=== PATIENT | female | born 1990 | race Caucasian/White ===

== ENCOUNTER 2017-05-07 23:33 | Emergency (ER) | payer OTHER ==
[2017-05-07 23:48] VITALS: RESP 16
[2017-05-08] MEDS ORDERED: NS 1,000 ML IV ONE (00:36)
--- NOTE | 2017-05-08 00:37 | EDPHY ---
H & P Stated Complaint: pt c/o severe smith starting this pm, n/v last pm/this am HPI/ROS: HPI CHIEF COMPLAINT: Nausea, vomiting, headache HISTORY OF PRESENT ILLNESS: This patient very pleasant 26-year-old female, she is otherwise healthy, she presents emergency room with a left-sided throbbing headache. She states last she fell in her bathroom with a head strike posterior aspect of her head against the bathtub. She immediately developed a headache and her headache has been rather persistent however yesterday she did state that her headache got better. However yesterday around 3:00 a.m. she woke up with vomiting she vomited twice yesterday and once today. Her headache return. She describes as throbbing pulsating left side. She denies any neck pain. Denies light sensitivity. Does admit that it hurts worse when she changes certain positions. She denies fever recent illness. No neck pain no neck stiffness. No meningeal signs. She decided come the emergency room as she had 3 episodes of vomiting and had head strike away almost a week ago she became concerned. She has no headache history. She denies drugs alcohol tobacco. Past Medical History: No significant medical history except for attention deficit hyperactivity disorder Past Surgical History: No significant surgical history Social History: Denies daily use drugs alcohol tobacco products. Did have 1 beer earlier this evening. Family History: Noncontributory ROS REVIEW OF SYSTEMS: A comprehensive 10 point review of systems is otherwise negative aside from elements mentioned in the history of present illness. Exam Constitutional appears well nontoxic triage nursing summary reviewed, vital signs reviewed, awake/alert. Eyes normal conjunctivae and sclera, EOMI, PERRLA. HENT normal inspection, atraumatic, moist mucus membranes, no epistaxis, neck supple/ no meningismus, no raccoon eyes. Respiratory clear to auscultation bilaterally, normal breath sounds, no respiratory distress, no wheezing. Cardiovascular rate normal, regular rhythm, no murmur, no edema, distal pulses normal. Gastrointestinal soft, non-tender, no rebound, no guarding, normal bowel sounds, no distension, no pulsatile mass. Genitourinary no CVA tenderness. Musculoskeletal no midline vertebral tenderness, full range of motion, no calf swelling, no tenderness of extremities, no meningismus, good pulses, neurovascularly intact. Skin pink, warm, & dry, no rash, skin atraumatic. Neurologic awake, alert and oriented x 3, AAOx3, moves all 4 extremities equally, motor intact, sensory intact, CN II-XII intact, normal cerebellar, normal vision, normal speech. Neck is supple. No meningeal signs. Nonfocal neurological exam. Psychiatric normal mood/affect. Heme/Lymph/Immune no lymphadenopathy. Differential Diagnosis: Includes but is not limited to in a particular order, migraine headache, tension headache, cluster headache, intracranial bleed, skull fracture, closed head injury Medical Decision Making: Plan for this patient CT head without contrast given trauma and headache, IV fluids, Zofran, medications for headache, check basic blood work and re-evaluate. Re-evaluation: 0308: Re-examination at this time this patient is resting comfortably. In no acute distress. Headache is completely resolved after migraine medication. CT scan head without contrast called to me by Dr. James is negative for acute intracranial abnormality specifically no skull fracture bleed. I have updated the patient about this. She would like to go home. She states she has 0/[address] scan unremarkable. She is nontoxic appearing. No fever. No white count. Return precautions given. She understands return emergency room she develops worsening headache fever vomiting. Source: Patient - Medical/Surgical History Hx Asthma: No Hx Chronic Respiratory Disease: No Hx Diabetes: No Hx Cardiac Disease: No Hx Renal Disease: No Hx Cirrhosis: No Hx Alcoholism: No Hx HIV/AIDS: No Hx Splenectomy or Spleen Trauma: No Other PMH: add, tonsillectomy - Social History Smoking Status: Never smoked Constitutional: Initial Vital Signs Temperature (C) 36.9 C 05/07/17 23:44 Heart Rate 55 L 05/07/17 23:44 Respiratory Rate 16 05/07/17 23:44 Blood Pressure 109/77 05/07/17 23:44 O2 Sat (%) 97 05/07/17 23:44 O2 Delivery Mode Room Air Allergies/Adverse Reactions: wasp stings Allergy (Uncoded 05/07/17 23:48) Home Medications: Medication Instructions Recorded VYVROSALIA 05/07/17 Medical Decision Making - Data Points Laboratory Results: Laboratory Results 05/08/17 00:16 05/08/17 00:16 05/08/17 05/08/17 00:16 00:16 WBC 4.88 10^3/uL 10^3/uL (3.80-9.50) RBC 5.04 10^6/uL 10^6/uL (4.18-5.33) Hgb 14.0 g/dL g/dL (12.6-16.3) Hct 42.6 % % (38.0-47.0) MCV 84.5 fL fL (81.5-99.8) MCH 27.8 pg L pg (27.9-34.1) MCHC 32.9 g/dL g/dL (32.4-36.7) RDW 15.4 % H % (11.5-15.2) Plt Count 278 10^3/uL 10^3/uL (150-400) MPV 10.3 fL fL (8.7-11.7) Neut % (Auto) 73.7 % % (39.3-74.2) Lymph % (Auto) 14.1 % L % (15.0-45.0) [place] % (Auto) 8.6 % % (4.5-13.0) Eos % (Auto) 1.6 % % (0.6-7.6) Baso % (Auto) 0.8 % % (0.3-1.7) Nucleat RBC Rel Count 0.0 % % (0.0-0.2) Absolute Neuts (auto) 3.59 10^3/uL 10^3/uL (1.70-6.50) Absolute Lymphs (auto) 0.69 10^3/uL L 10^3/uL (1.00-3.00) Absolute Monos (auto) 0.42 10^3/uL 10^3/uL (0.30-0.80) Absolute Eos (auto) 0.08 10^3/uL 10^3/uL (0.03-0.40) Absolute Basos (auto) 0.04 10^3/uL 10^3/uL (0.02-0.10) Absolute Nucleated RBC 0.00 10^3/uL 10^3/uL (0-0.01) Immature Gran % 1.2 % H % (0.0-1.1) Immature Gran # 0.06 10^3/uL 10^3/uL (0.00-0.10) Sodium 140 mEq/L mEq/L (134-144) Potassium 4.1 mEq/L mEq/L (3.5-5.2) Chloride 102 mEq/L mEq/L (97-110) Carbon Dioxide 22 mEq/l mEq/l (22-31) Anion Gap 16 mEq/L mEq/L (8-16) BUN 11 mg/dL mg/dL (7-23) Creatinine 0.9 mg/dL mg/dL (0.6-1.0) Estimated GFR > 60 Glucose 110 mg/dL H mg/dL (70-100) Calcium 9.8 mg/dL mg/dL (8.5-10.4) Medications Given: Discontinued Medications Dexamethasone (Decadron Injection) 10 mg IVP EDNOW ONE Stop: 05/08/17 00:43 Last Admin: 05/08/17 01:03 Dose: 10 mg Diphenhydramine HCl (Benadryl Injection) 25 mg IVP EDNOW ONE Stop: 05/08/17 00:43 Last Admin: 05/08/17 01:03 Dose: 25 mg Sodium Chloride (Ns) 1,000 mls @ 0 mls/hr IV ONCE ONE; Wide Open PRN Reason: Protocol Stop: 05/08/17 00:37 Last Admin: 05/08/17 00:42 Dose: 1,000 mls Ketorolac Tromethamine (Toradol) 15 mg IVP EDNOW ONE Stop: 05/08/17 01:13 Last Admin: 05/08/17 01:48 Dose: 15 mg Metoclopramide HCl (Reglan Injection) 10 mg IVP EDNOW ONE Stop: 05/08/17 00:43 Last Admin: 05/08/17 01:03 Dose: 10 mg Ondansetron HCl (Zofran) 4 mg IVP EDNOW ONE Stop: 05/08/17 00:43 Last Admin: 05/08/17 01:03 Dose: 4 mg Departure - Departure Disposition: Home, Routine, Self-Care Clinical Impression: Head injury Qualifiers: Encounter type: initial encounter Qualified Code(s): S09.90XA - Unspecified injury of head, initial encounter Headache Qualifiers: Headache type: unspecified Headache chronicity pattern: acute headache Intractability: not intractable Qualified Code(s): R51 - Headache Condition: Good Instructions: Acute Headache (ED) Additional Instructions: 1. Stay well-hydrated drink lots of fluids. 2. You may alternate Tylenol Motrin for pain control. 3. Return emergency room if there is worsening symptoms questions or concerns. Referrals: NONE *PRIMARY CARE P,. [Primary Care Provider] - As per Instructions
[2017-05-08] MEDS ORDERED: METOCLOPRAMIDE 10 MG/2 ML VIAL IVP ONE (00:42)
[2017-05-08] MEDS ORDERED: DEXAMETHASONE 10 MG/ML VIAL IVP ONE (00:42)
[2017-05-08] MEDS ORDERED: ONDANSETRON 4 MG/2 ML VIAL IVP ONE (00:42)
[2017-05-08 00:44] LABS: ANION GAP 16 mEq/L (8-16); CALCIUM 9.8 mg/dL (8.5-10.4); CARBON DIOXIDE 22 mEq/l (22-31); CHLORIDE 102 mEq/L (97-110); CREATININE 0.9 mg/dL (0.6-1.0); GLOMERULAR FILTRATION RATE > 60; GLUCOSE 110 mg/dL (70-100); POTASSIUM 4.1 mEq/L (3.5-5.2); SODIUM 140 mEq/L (134-144)
[2017-05-08 01:05] LABS: % IMMATURE GRANULYOCYTES 1.2 % (0.0-1.1); ABSOLUTE IMMATURE GRANULOCYTES 0.06 10^3/uL (0.00-0.10); ADD DIFF? NO; ADD MORPH? NO; ADD SCAN? NO; ATYPICAL LYMPHOCYTE FLAG 0 (0-99); FRAGMENT RBC FLAG 0 (0-99); HEMATOCRIT 42.6 % (38.0-47.0); LEFT SHIFT FLG 10 (0-99); LIPEMIA HEMOLYSIS FLAG 80 (0-99); MEAN CELL HEMOGLOBIN 27.8 pg (27.9-34.1); MEAN CELL HEMOGLOBIN CONCENTR. 32.9 g/dL (32.4-36.7); MEAN CELL VOLUME 84.5 fL (81.5-99.8); MEAN PLATELET VOLUME 10.3 fL (8.7-11.7); PLATELET CLUMPS FLAG 0 (0-99); PLATELET COUNT 278 10^3/uL (150-400); RED BLOOD CELL COUNT 5.04 10^6/uL (4.18-5.33); RED CELL DISTRIBUTION WIDTH 15.4 % (11.5-15.2)
[2017-05-08] MEDS ORDERED: KETOROLAC 15 MG/1 ML SDV IVP ONE (01:12)
[2017-05-08 03:18] VITALS: BP 97/56; PULSE 60; TEMP 98.2; O2SAT 96
== END 2017-05-08 03:16 | disposition home or self-care (01) ==
DX: S09.90XA Unspecified injury of head, initial encounter (principal); E86.9 Volume depletion, unspecified; W01.198A Fall on same level from slipping, tripping and stumbling with subsequent striking against other object, initial encounter; Y92.89 Other specified places as the place of occurrence of the external cause
CPT/HCPCS: 96374; J1100; J1200; J1885; J2405; J2765